=== PATIENT | male | born 1975 | race American Indian/Alaskan Native ===

== ENCOUNTER 2020-04-02 10:50 | Emergency (ER) | payer BC ==
[2020-04-02] MEDS ORDERED: diphenhydrAMINE 25 MG/10 ML ORAL LIQUID PO ONE (11:12)
[2020-04-02] MEDS ORDERED: SODIUM CHLORIDE 0.9% 500 ML 500 ML IV ONE (11:12)
[2020-04-02] MEDS ORDERED: METOCLOPRAMIDE 10 MG/2 ML INJ IV ONE (11:12)
--- NOTE | 2020-04-02 11:13 | Emergency Department Report ---
ED Headache HPI - General Chief Complaint: Headache Stated Complaint: HEADACHE X 12 DAYS Time Seen by Provider: 04/02/20 11:08 - History of Present Illness Initial Comments: 45-year-old male with a past medical history of hypertension and diabetes presents to the ER today complaint of a 12-day headache. Patient states that he has been having this left occipital headache which radiates into his left parietal scalp for the past 12 days. He describes it as sharp and sometimes throbbing and intermittent in nature. He states that sometimes it is worse when he is moving. He states that he did see his primary care doctor last Thursday and his primary care doctor did give him prescription for tramadol and amoxicillin for possible sinus infection and he did have an outpatient head CT. He states that he was supposed to follow-up today but he got concerned, did not want to wait and decided to come to the ER. He states that he is also been taking Zyrtec, BCs and Excedrin. He states that when he takes all of the medication he did get brief relief of his headache, but he states that the headache would come right back. He states that he does have a history of tension headaches, which he gets from "time to time" but he states this feels different from his tension headaches because it is lasting a little longer than usual. He denies any associated URI symptoms, nausea, vomiting, vision changes, speech changes, dizziness, neck pain, fever, chills, chest pain or shortness of breath. He states he has been compliant with his BP meds. Timing/Duration: other (12 days ) Quality: moderate Head Injury Location: occipital Allergies/Adverse Reactions: Allergies No Known Allergies Allergy (Verified 04/02/20 11:01) Home Medications: Ambulatory Orders Levocetirizine Dihydrochloride [Xyzal] 5 mg PO DAILY 06/10/15 Lisinopril/Hydrochlorothiazide [Zestoretic 20-12.5 mg] 1 tab PO QDAY 06/10/15 amLODIPine 10 mg PO DAILY 06/10/15 carvediloL [Coreg] 25 mg PO BID 06/10/15 methOCARBAMOL [Robaxin TAB] 500 mg PO Q8HR #30 tablet 04/02/20 ED Review of Systems ROS: Stated complaint: HEADACHE X 12 DAYS Other details as noted in HPI Comment: All other systems reviewed and negative Constitutional: denies: chills, fever Eyes: denies: eye pain, eye discharge, vision change ENT: denies: ear pain, throat pain Respiratory: denies: cough, orthopnea, shortness of breath, SOB with exertion, SOB at rest, wheezing Cardiovascular: denies: chest pain, palpitations Gastrointestinal: denies: abdominal pain, nausea, vomiting, diarrhea Genitourinary: denies: urgency, dysuria Musculoskeletal: denies: back pain, joint swelling, arthralgia Neurological: headache Psychiatric: denies: anxiety, depression Hematological/Lymphatic: denies: easy bleeding, easy bruising ED Past Medical Hx - Past Medical History Hx Hypertension: Yes Additional medical history: sleep apnea - Surgical History Additional Surgical History: left knee surgery - Social History Smoking Status: Never Smoker Substance Use Type: Alcohol - Medications Home Medications: Home Medications Medication Instructions Recorded Confirmed Last Taken Type Levocetirizine Dihydrochloride 5 mg PO DAILY 06/10/15 06/10/15 Unknown History [Xyzal] Lisinopril/Hydrochlorothiazide 1 tab PO QDAY 06/10/15 06/10/15 Unknown History [Zestoretic 20-12.5 mg] amLODIPine 10 mg PO DAILY 06/10/15 06/10/15 Unknown History carvediloL [Coreg] 25 mg PO BID 06/10/15 06/10/15 Unknown History methOCARBAMOL [Robaxin TAB] 500 mg PO Q8HR #30 tablet 04/02/20 Unknown Rx ED Physical Exam - General Limitations: No Limitations General appearance: alert, in no apparent distress - Head Head exam: Present: atraumatic, normocephalic, normal inspection - Eye Eye exam: Present: normal appearance, PERRL, EOMI Pupils: Present: normal accommodation - ENT ENT exam: Present: normal exam, normal orophraynx, mucous membranes moist, TM's normal bilaterally - Neck Neck exam: Present: normal inspection, full ROM. Absent: meningismus - Respiratory Respiratory exam: Present: normal lung sounds bilaterally. Absent: respiratory distress - Cardiovascular Cardiovascular Exam: Present: regular rate, normal rhythm, normal heart sounds - GI/Abdominal GI/Abdominal exam: Present: soft. Absent: distended, tenderness - Neurological Exam Neurological exam: Present: alert, oriented X3, CN II-XII intact, normal gait. Absent: motor sensory deficit - Psychiatric Psychiatric exam: Present: normal affect, normal mood - Skin Skin exam: Present: intact ED Course Vital Signs 04/02/20 04/02/20 11:04 13:02 Temperature 98.3 F Pulse Rate 82 70 Respiratory 18 18 Rate Blood Pressure 155/88 Blood Pressure 127/74 [Right] O2 Sat by Pulse 100 100 Oximetry ED Medical Decision Making - Lab Data Result diagrams: 04/02/20 12:05 04/02/20 12:05 - Radiology Data Radiology results: report reviewed - Medical Decision Making 45-year-old male with a past medical history of hypertension and diabetes presents to the ER today complaint of a 12-day headache. Patient states that he has been having this left occipital headache which radiates into his left parietal scalp for the past 12 days. He describes it as sharp and sometimes throbbing and intermittent in nature. He states that sometimes it is worse when he is moving. He states that he did see his primary care doctor last Thursday and his primary care doctor did give him prescription for tramadol and amoxicil nicci for possible sinus infection and he did have an outpatient head CT. He states that he was supposed to follow-up today but he got concerned, did not want to wait and decided to come to the ER. He states that he is also been taking Zyrtec, BCs and Excedrin. He states that when he takes all of the medication he did get brief relief of his headache, but he states that the headache would come right back. He states that he does have a history of tension headaches, which he gets from "time to time" but he states this feels different from his tension headaches because it is lasting a little longer than usual. He denies any associated URI symptoms, nausea, vomiting, vision changes, speech changes, dizziness, neck pain, fever, chills, chest pain or shortness of breath. He states he has been compliant with his BP meds 1312: CT head reviewed and shows nothing acute. Labs reviewed and unremarkable. Patient is currently resting comfortably,and he reports improvement of his headache after medications. He is not toxic appearing, he is not ill-appearing, he is not in any acute distress, and he is neurologically intact and with normal gait in the ER. His VS reviewed, BP improved, remaining vitals have been stable.The history, exam, diagnostic testing and the patient's current condition does not suggest meningitis, stroke, sepsis, subarachnoid hemorrhage, intracranial bleeding, encephalitis, temporal arteritis or other significant pathology to warrant further testing, continued ED treatment, admission, neurological consultation or other specialist evaluation at this point. Disc ussed results, suspected diagnosis and treatment plan with patient. the patient's condition is stable and appropriate for discharge. The patient will pursue further outpatient evaluation with the primary care physician. Critical care attestation.: If time is entered above; I have spent that time in minutes in the direct care of this critically ill patient, excluding procedure time. ED Disposition Clinical Impression: Headache Disposition: DC-01 TO HOME OR SELFCARE Is pt being admited?: No Does the pt Need Aspirin: No Condition: Stable Instructions: General Headache Without Cause Additional Instructions: Take the Robaxin as prescribed, continue the tramadol and you can take motrin from over the counter to help Headache Drink lots of water. Recommend that you follow-up closely with your primary care doctor this week. Return to the ER if your symptoms changes or worsens in any way. Prescriptions: methOCARBAMOL [Robaxin TAB] 500 mg PO Q8HR #30 tablet Referrals: JENIFFER BOOKER MD [Primary Care Provider] - 3-5 Days Forms: Work/School Release Form(ED) Time of Disposition: 13:05
--- NOTE | 2020-04-02 11:51 | Cat Scan Report ---
NONENHANCED CT SCAN OF THE HEAD: INDICATION / CLINICAL INFORMATION: 45 years Male; Headache. TECHNIQUE: Routine CT head without contrast. All CT scans at this location are performed using CT dos e reduction for ALARA by means of automated exposure control. COMPARISON: None. FINDINGS: BRAIN / INTRACRANIAL CONTENTS: No acute hemorrhage, mass effect, midline shift, hydrocephalus, or acu te, large territorial infarct. No chronic infarct or focal atrophy. Normal brain volume and ventricul ar/sulcal size for age. No significant white matter abnormality. CRANIOCERVICAL JUNCTION: No significant abnormality. ORBITS: No significant abnormality of visualized orbits. SINUSES / MASTOIDS: No significant abnormality of the visualized paranasal sinuses or mastoid air anuj ls. ADDITIONAL FINDINGS: None. IMPRESSION: No acute focal parenchymal lesion in the brain Signer Name: Angel Vargas MD Signed: 04/02/2020 11:47 AM Workstation Name: [id number]
[2020-04-02 12:34] LABS: Basophils % (Auto) 0.6 % (0.0-1.8); Eosinophils # (Auto) 0.2 K/mm3 (0.0-0.4); Eosinophils % (Auto) 3.4 % (0.0-4.3); Hematocrit 41.1 % (35.5-45.6); Hemoglobin 13.3 gm/dl (11.8-15.2); Lymphocytes # (Auto) 1.9 K/mm3 (1.2-5.4); Lymphocytes % (Auto) 39.6 % (13.4-35.0); Mean Corpuscular HGB Conc 32 % (32-34); Mean Corpuscular Volume 84 fl (84-94); Monocytes # (Auto) 0.4 K/mm3 (0.0-0.8); Monocytes % (Auto) 8.1 % (0.0-7.3); Platelet Count 143 K/mm3 (140-440); Red Blood Count 4.92 M/mm3 (3.65-5.03); Red Cell Distribution Width 17.2 % (13.2-15.2)
[2020-04-02 12:55] LABS: Alanine Aminotransferase 30 units/L (7-56); Albumin 4.1 g/dL (3.9-5); BUN/Creatinine Ratio 16; Blood Urea Nitrogen 16 mg/dL (9-20); Calcium 9.1 mg/dL (8.4-10.2); Hemolysis Index 4
[2020-04-02 13:03] VITALS: BP 127/74
== END 2020-04-02 13:16 | disposition home or self-care (01) ==
LOC: ED 10:50
DX: R51.9 Headache, unspecified (principal); I10 Essential (primary) hypertension; Z98.890 Other specified postprocedural states; Z79.899 Other long term (current) drug therapy
CPT/HCPCS: 36415; 70450; 80053; 85025; 96361; 96374; 99284; J2765; J7040; Q0163

== ENCOUNTER 2021-08-03 16:56 | Inpatient (IN) | payer BC ==
[2021-08-03] MEDS ORDERED: SODIUM CHLORIDE 0.9% 1000 ML 1,000 ML IV ONE (18:19)
[2021-08-03 18:45] LABS: Basophils % (Auto) 0.5 % (0.0-1.8); Eosinophils # (Auto) 0.1 K/mm3 (0.0-0.4); Eosinophils % (Auto) 1.4 % (0.0-4.3); Hematocrit 32.1 % (35.5-45.6); Hemoglobin 10.2 gm/dl (11.8-15.2); Lymphocytes # (Auto) 1.6 K/mm3 (1.2-5.4); Lymphocytes % (Auto) 17.8 % (13.4-35.0); Mean Corpuscular HGB Conc 32 % (32-34); Mean Corpuscular Volume 85 fl (84-94); Monocytes # (Auto) 0.5 K/mm3 (0.0-0.8); Monocytes % (Auto) 5.5 % (0.0-7.3); Platelet Count 146 K/mm3 (140-440); Red Blood Count 3.78 M/mm3 (3.65-5.03); Red Cell Distribution Width 15.2 % (13.2-15.2)
[2021-08-03 19:09] LABS: Alanine Aminotransferase 30 units/L (7-56); Albumin 3.7 g/dL (3.9-5); BUN/Creatinine Ratio 12; Blood Urea Nitrogen 14 mg/dL (9-20); Calcium 8.6 mg/dL (8.4-10.2); Hemolysis Index 3
--- NOTE | 2021-08-03 22:17 | Emergency Department Report ---
ED GI Bleed HPI - General Chief complaint: GI Bleed Stated complaint: RECTAL BLEEDING Time Seen by Provider: 08/03/21 22:01 Source: patient Mode of arrival: Ambulatory Limitations: No Limitations - History of Present Illness Initial comments: Patient is a 46-year-old male with history of diverticulosis lower GI bleeding presenting with complaint of GI bleed. States the initial event was . States he had a large bloody bowel movement that appeared to improve on Thursday however today around 2 AM he experienced another large bloody bowel movement accompanied by a presyncopal spell. He reports a similar incident back in 2016 for which he was admitted here and underwent upper endoscopy and biopsy. He also had a syncopal event during that time which was thought to have been vasovagal in nature. Severity scale (0 -10): 4 - Related Data Home Medications Medication Instructions Recorded Confirmed Last Taken Levocetirizine Dihydrochloride 5 mg PO DAILY 06/10/15 06/10/15 Unknown [Xyzal] Lisinopril/Hydrochlorothiazide 1 tab PO QDAY 06/10/15 06/10/15 Unknown [Zestoretic 20-12.5 mg] amLODIPine 10 mg PO DAILY 06/10/15 06/10/15 Unknown carvediloL [Coreg] 25 mg PO BID 06/10/15 06/10/15 Unknown Previous Rx's Medication Instructions Recorded Last Taken Type methOCARBAMOL [Robaxin TAB] 500 mg PO Q8HR #30 tablet 04/02/20 Unknown Rx Allergies Allergy/AdvReac Type Severity Reaction Status Date / Time No Known Allergies Allergy Verified 04/02/20 11:01 ED Review of Systems ROS: Stated complaint: RECTAL BLEEDING Other details as noted in HPI Comment: All other systems reviewed and negative Constitutional: denies: chills, fever Respiratory: denies: cough, shortness of breath, wheezing Cardiovascular: denies: chest pain, palpitations Gastrointestinal: hematochezia Genitourinary: denies: urgency, dysuria Musculoskeletal: denies: back pain, joint swelling, arthralgia Skin: denies: rash, lesions Neurological: denies: headache, weakness, paresthesias Psychiatric: denies: anxiety, depression ED Past Medical Hx - Past Medical History Previous Medical History?: Yes Hx Hypertension: Yes Additional medical history: sleep apnea, Diverticulosis - Surgical History Past Surgical History?: Yes Additional Surgical History: left knee surgery - Social History Smoking Status: Never Smoker Substance Use Type: Alcohol, Prescribed - Medications Home Medications: Home Medications Medication Instructions Recorded Confirmed Last Taken Type Levocetirizine Dihydrochloride 5 mg PO DAILY 06/10/15 06/10/15 Unknown History [Xyzal] Lisinopril/Hydrochlorothiazide 1 tab PO QDAY 06/10/15 06/10/15 Unknown History [Zestoretic 20-12.5 mg] amLODIPine 10 mg PO DAILY 06/10/15 06/10/15 Unknown History carvediloL [Coreg] 25 mg PO BID 06/10/15 06/10/15 Unknown History methOCARBAMOL [Robaxin TAB] 500 mg PO Q8HR #30 tablet 04/02/20 Unknown Rx ED Physical Exam - General Limitations: No Limitations General appearance: alert, in no apparent distress - Head Head exam: Present: atraumatic, normocephalic - Neck Neck exam: Present: normal inspection - Respiratory Respiratory exam: Present: normal lung sounds bilaterally. Absent: respiratory distress - Cardiovascular Cardiovascular Exam: Present: regular rate, normal rhythm - GI/Abdominal GI/Abdominal exam: Present: soft. Absent: distended, tenderness - Rectal Rectal exam: Present: deferred - Neurological Exam Neurological exam: Present: alert, oriented X3 - Psychiatric Psychiatric exam: Present: normal affect, normal mood - Skin Skin exam: Present: warm, dry, intact, normal color ED Course Vital Signs 08/03/21 18:02 Temperature 97.6 F Pulse Rate 75 Respiratory 20 Rate Blood Pressure 105/67 [Right] O2 Sat by Pulse 99 Oximetry ED Medical Decision Making - Lab Data Result diagrams: 08/03/21 18:23 08/03/21 18:23 - Medical Decision Making Patient with history of diverticulosis and diverticular bleeding presenting with complaint of hematochezia beginning . H&H today is 10 and 32. Vital signs are stable. Blood pressure borderline low. Will give 1 L normal saline bolus and admit to hospitalist for observation and serial H&H's. Critical care attestation.: If time is entered above; I have spent that time in minutes in the direct care of this critically ill patient, excluding procedure time. ED Disposition Clinical Impression: Hematochezia Disposition: ADMITTED INPATIENT Is pt being admited?: Yes Condition: Stable Forms: Accompanied Note
[2021-08-03] MEDS ORDERED: MORPHINE 2 MG/1 ML INJ IV PRN (22:56)
[2021-08-03] MEDS ORDERED: ALBUTEROL 2.5 MG/3 ML NEBU IH PRN (22:56)
[2021-08-03] MEDS ORDERED: MORPHINE 4 MG/1 ML INJ IV PRN (22:56)
[2021-08-03] MEDS ORDERED: ONDANSETRON 4 MG/2 ML INJ IV PRN (22:56)
[2021-08-03] MEDS ORDERED: ACETAMINOPHEN 325 MG TAB PO PRN (22:56)
--- NOTE | 2021-08-03 23:03 | History and Physical Report ---
History of Present Illness Date of examination: 08/03/21 Date of admission: 08/03/21 Chief complaint: Rectal bleeding History of present illness: 46-year-old male with history of diverticulosis and lower GI bleeding presenting with complaint of GI bleed since . Patient had a large bloody bowel movement that appeared to improve on Thursday however today around 2 AM he experienced another large bloody bowel movement accompanied by a presyncopal spell. He reports a similar incident back in 2016 for which he was admitted here and underwent upper endoscopy and biopsy. He also had a syncopal event during that time which was thought to have been vasovagal in nature. In the emergency room patient hemoglobin is 10.2 and hematocrit 32.1 so going to admit the patient will consult GI for evaluation we also put the patient on Protonix . Past History Past Medical History: hypertension, other (Diverticulosis and lower GI bleeding, sleep apnea) Past Surgical History: Other (Left knee surgery) Social history: alcohol abuse Family history: hypertension Medications and Allergies Allergies Allergy/AdvReac Type Severity Reaction Status Date / Time No Known Allergies Allergy Verified 04/02/20 11:01 Home Medications Medication Instructions Recorded Confirmed Last Taken Type Levocetirizine Dihydrochloride 5 mg PO DAILY 06/10/15 06/10/15 Unknown History [Xyzal] Lisinopril/Hydrochlorothiazide 1 tab PO QDAY 06/10/15 06/10/15 Unknown History [Zestoretic 20-12.5 mg] amLODIPine 10 mg PO DAILY 06/10/15 06/10/15 Unknown History carvediloL [Coreg] 25 mg PO BID 06/10/15 06/10/15 Unknown History methOCARBAMOL [Robaxin TAB] 500 mg PO Q8HR #30 tablet 04/02/20 Unknown Rx Review of Systems All systems: negative Constitutional: other (Hematochezia, will rectal bleed) Exam - Constitutional Vitals: Temp Pulse Resp BP Pulse Ox 97.6 F 75 20 105/67 99 08/03/21 18:02 08/03/21 18:02 08/03/21 18:02 08/03/21 18:02 08/03/21 18:02 General appearance: Present: no acute distress, well-nourished - EENT Eyes: Present: PERRL ENT: hearing intact, clear oral mucosa - Neck Neck: Present: supple, normal ROM - Respiratory Respiratory effort: normal Respiratory: bilateral: CTA - Cardiovascular Heart Sounds: Present: S1 & S2. Absent: rub, click - Extremities Extremities: pulses symmetrical, No edema Peripheral Pulses: within normal limits - Abdominal General gastrointestinal: Present: soft, non-tender, non-distended, normal bowel sounds Male genitourinary: Present: normal - Integumentary Integumentary: Present: clear, warm, dry - Musculoskeletal Musculoskeletal: gait normal, strength equal bilaterally - Psychiatric Psychiatric: appropriate mood/affect, intact judgment & insight - Neurologic Neurologic: CNII-XII intact, moves all extremities Results - Labs CBC & Chem 7: 08/03/21 18:08/03/21 18: Labs: Laboratory Last Values WBC 9.0 K/mm3 (4.5-11.0) 08/03/21 18: RBC 3.78 M/mm3 (3.65-5.03) 08/03/21 18: Hgb 10.2 gm/dl (11.8-15.2) L 08/03/21: Hct 32.1 % (35.5-45.6) L 08/03/21 18: MCV 85 fl (84-94) 08/03/21 18: MCH 27 pg (28-32) L 08/03/21 18: MCHC 32 % (32-34) 08/03/21 18: RDW 15.2 % (13.2-15.2) 08/03/21 18: Plt Count 146 K/mm3 (140-440) 08/03/21 18: Lymph % (Auto) 17.8 % (13.4-35.0) 08/03/21 18: [place] % (Auto) 5.5 % (0.0-7.3) 08/03/21 18: Eos % (Auto) 1.4 % (0.0-4.3) 08/03/21 18: Baso % (Auto) 0.5 % (0.0-1.8) 08/03/21 18: Lymph # (Auto) 1.6 K/mm3 (1.2-5.4) 08/03/21 18: [place] # (Auto) 0.5 K/mm3 (0.0-0.8) 08/03/21 18:23 Eos # (Auto) 0.1 K/mm3 (0.0-0.4) 08/03/21 18:23 Baso # (Auto) 0.0 K/mm3 (0.0-0.1) 08/03/21 18: Seg Neutrophils % 74.8 % (40.0-70.0) H 08/03/21 18: Seg Neutrophils # 6.7 K/mm3 (1.8-7.7) 08/03/21 18: Sodium 138 mmol/L (137-145) 08/03/21 18: Potassium 3.6 mmol/L (3.6-5.0) 08/03/21 18: Chloride 103.8 mmol/L (98-107) 08/03/21 18: Carbon Dioxide 27 mmol/L (22-30) 08/03/21 18: Anion Gap 11 mmol/L 08/03/21 18: BUN 14 mg/dL (9-20) 08/03/21 18: Creatinine 1.2 mg/dL (0.8-1.3) 08/03/21 18: Estimated GFR > 60 ml/min 08/03/21 18: BUN/Creatinine Ratio 12 % 08/03/21 18: Glucose 153 mg/dL (75-100) H 08/03/21 18: Calcium 8.6 mg/dL (8.4-10.2) 08/03/21: Total Bilirubin 0.30 mg/dL (0.1-1.2) 08/03/21 18: AST 17 units/L (5-40) 08/03/21 18: ALT 30 units/L (7-56) 08/03/21 18: Alkaline Phosphatase 66 units/L (35-129) 08/03/21: Total Protein 5.9 g/dL (6.3-8.2) L 08/03/21: Albumin 3.7 g/dL (3.9-5) L 08/03/21: Albumin/Globulin Ratio 1.7 % 08/03/21 18: Blood Type O POSITIVE 08/03/21: Antibody Screen Negative 06/18/22 18:23 Assessment and Plan VTE prophylaxis?: Mechanical Plan of care discussed with patient/family: Yes - Patient Problems (1) Hematochezia Status: Acute Plan to address problem: Admit the patient to the medical telemetry. NPO. D5 normal saline at the rate of 100 cc/h. Protonix 40 mg IV every 12 hours. We will do the serial H&H. Will consult GI for evaluation (2) Alcohol abuse Status: Acute Plan to address problem: We counseled the patient to quit alcohol. We continue the home medication (3) Lower GI bleed Status: Acute Plan to address problem: NPO. D5 normal saline at the rate of 100 cc/h. Protonix 40 mg IV every 12 hours. We will do the serial H&H. Will consult GI for evaluation (4) Syncope Status: Acute Plan to address problem: D5 normal saline at the rate of 100 cc/h. We will monitor the patient closely. Recheck CBC BMP in the morning (5) DVT prophylaxis Status: Acute Plan to address problem: SCD for DVT prophylaxis. Protonix 40 mg IV every 12 hours for GI prophylaxis. Patient is a full code
[2021-08-04] MEDS: IPRATROPIUM/ALBUTEROL SULFATE 3 ML AMPUL.NEB IH SCH ×3 (03:00→14:36)
[2021-08-04] MEDS: D5W/0.9% NACL 1,000 ML IV SCH ×2 (03:48→13:24)
[2021-08-04 06:20] LABS: Basophils % (Auto) 0.3 % (0.0-1.8); Eosinophils # (Auto) 0.1 K/mm3 (0.0-0.4); Eosinophils % (Auto) 1.1 % (0.0-4.3); Hematocrit 26.3 % (35.5-45.6); Hemoglobin 8.6 gm/dl (11.8-15.2); Lymphocytes # (Auto) 2.5 K/mm3 (1.2-5.4); Lymphocytes % (Auto) 28.8 % (13.4-35.0); Mean Corpuscular HGB Conc 33 % (32-34); Mean Corpuscular Volume 84 fl (84-94); Monocytes # (Auto) 0.5 K/mm3 (0.0-0.8); Monocytes % (Auto) 5.9 % (0.0-7.3); Platelet Count 134 K/mm3 (140-440); Red Blood Count 3.14 M/mm3 (3.65-5.03); Red Cell Distribution Width 15.1 % (13.2-15.2)
[2021-08-04 07:08] LABS: BUN/Creatinine Ratio 13; Blood Urea Nitrogen 12 mg/dL (9-20); Calcium 8.3 mg/dL (8.4-10.2); Hemolysis Index 7
--- NOTE | 2021-08-04 09:00 | Progress Note ---
Assessment and Plan Assessment and plan: VTE prophylaxis?: Mechanical Plan of care discussed with patient/family: Yes Assessment and plan; --Hematochezia NPO STATUS , Continue IV fluids Patient is on IV Protonix GI consulted -- Alcohol abuse We counseled the patient to quit alcohol. Thiamine folic acid --Mild hyponatremia; IV fluids, monitor electrolytes -- Lower GI bleed No new episodes since morning, closely monitor for any bleeding Monitor H&H and transfuse if needed Continue IV fluids and IV Protonix Follow GI evaluation and recommendations -- Syncope/autonomic dysfunction Probably vasovagal, due to GI bleeding Fall precautions, PT OT if needed prior to discharge --Hypertension; moderate control Continue current antihypertensives As needed medications --DVT prophylaxis SCD for DVT prophylaxis. No pharmacologic anticoagulation due to GI bleeding --full CODE STATUS We will closely monitor the patient and adjust management as needed Advance care planning; patient's condition discussed Diagnosis discussed, tests and reports discussed, treatment plan discussed Need for consultation with GI specialist discussed, discharge planning discussed when stable Answered all patient and the significant other questions and addressed all their concerns They verbalized understanding, additional 32 minutes spent History Interval history: I have seen and examined the patient at the bedside Patient's chart and medications reviewed Patient was admitted with hematochezia/GI bleeding No new episodes of bleeding since morning Complains of vague abdominal discomfort Vital signs noted Hospitalist Physical - Constitutional Vitals: Temp Pulse Resp BP Pulse Ox 98.3 F 88 16 128/83 98 08/04/21 04:37 08/04/21 08:37 08/04/21 08:37 08/04/21 04:37 08/04/21 08:39 General appearance: Present: no acute distress, well-nourished, obese (Morbidly obese ) - EENT Eyes: Present: PERRL, EOM intact - Neck Neck: Present: supple, normal ROM - Respiratory Respiratory effort: normal Respiratory: bilateral: diminished, negative: rales, rhonchi, wheezing - Cardiovascular Rhythm: regular Heart Sounds: Present: S1 & S2 - Extremities Extremities: no ischemia, No edema - Abdominal General gastrointestinal: soft, non-tender, non-distended, normal bowel sounds - Integumentary Integumentary: Present: clear, warm - Psychiatric Psychiatric: appropriate mood/affect, cooperative - Neurologic Neurologic: CNII-XII intact, moves all extremities Results - Labs CBC & Chem 7: 08/04/21 15:16 08/04/21 05:17 Labs: Laboratory Last Values WBC 8.6 K/mm3 (4.5-11.0) 08/04/21 05:17 RBC 3.14 M/mm3 (3.65-5.03) L 08/04/21 05:17 Hgb 8.6 gm/dl (11.8-15.2) L 08/04/21 05:17 Hct 26.3 % (35.5-45.6) L 08/04/21 05:17 MCV 84 fl (84-94) 08/04/21 05:17 MCH 28 pg (28-32) 08/04/21 05:17 MCHC 33 % (32-34) 08/04/21 05:17 RDW 15.1 % (13.2-15.2) 08/04/21 05:17 Plt Count 134 K/mm3 (140-440) L 08/04/21 05:17 Lymph % (Auto) 28.8 % (13.4-35.0) 08/04/21 05:17 Hudson % (Auto) 5.9 % (0.0-7.3) 08/04/21 05:17 Eos % (Auto) 1.1 % (0.0-4.3) 08/04/21 05:17 Baso % (Auto) 0.3 % (0.0-1.8) 08/04/21 05:17 Lymph # (Auto) 2.5 K/mm3 (1.2-5.4) 08/04/21 05:17 Hudson # (Auto) 0.5 K/mm3 (0.0-0.8) 08/04/21 05:17 Eos # (Auto) 0.1 K/mm3 (0.0-0.4) 08/04/21 05:17 Baso # (Auto) 0.0 K/mm3 (0.0-0.1) 08/04/21 05:17 Seg Neutrophils % 63.9 % (40.0-70.0) 08/04/21 05:17 Seg Neutrophils # 5.5 K/mm3 (1.8-7.7) 08/04/21 05:17 Sodium 142 mmol/L (137-145) 08/04/21 05:17 Potassium 4.0 mmol/L (3.6-5.0) 08/04/21 05:17 Chloride 107.1 mmol/L (98-107) H 08/04/21 05:17 Carbon Dioxide 24 mmol/L (22-30) 08/04/21 05:17 Anion Gap 15 mmol/L 08/04/21 05:17 BUN 12 mg/dL (9-20) 08/04/21 05:17 Creatinine 0.9 mg/dL (0.8-1.3) 08/04/21 05:17 Estimated GFR > 60 ml/min 08/04/21 05:17 BUN/Creatinine Ratio 13 % 08/04/21 05:17 Glucose 117 mg/dL (75-100) H 08/04/21 05:17 Calcium 8.3 mg/dL (8.4-10.2) L 08/04/21 05:17 Total Bilirubin 0.30 mg/dL (0.1-1.2) 08/03/21 18:23 AST 17 units/L (5-40) 08/03/21 18:23 ALT 30 units/L (7-56) 08/03/21 18:23 Alkaline Phosphatase 66 units/L (35-129) 08/03/21 18:23 Total Protein 5.9 g/dL (6.3-8.2) L 08/03/21 18:23 Albumin 3.7 g/dL (3.9-5) L 08/03/21 18:23 Albumin/Globulin Ratio 1.7 % 08/03/21 18:23 Blood Type O POSITIVE 08/03/21 18:23 Antibody Screen Negative 08/03/21 18:23 Active Medications - Current Medications Current Medications: Generic Name Dose Route Start Last Admin Trade Name Freq PRN Reason Stop Dose Admin Acetaminophen 650 mg 08/03/21 22:56 Acetaminophen 325 Mg Tab PO Q4H PRN Pain MILD(1-3)/Fever >100.5/RIDDLE Albuterol 2.5 mg 08/03/21 22:56 Albuterol 2.5 Mg/3 Ml Nebu IH Q3HRT PRN Shortness Of Breath Albuterol/Ipratropium 1 ampul 08/04/21 02:00 08/04/21 08:36 Ipratropium/Albuterol Sulfate 3 Ml Ampul.Neb IH 1 ampul Q6HRT ALEIDA Administration Amlodipine Besylate 10 mg 08/04/21 10:00 Amlodipine 10 Mg Tab PO DAILY [facility] Carvedilol 25 mg 08/04/21 10:00 Carvedilol 25 Mg Tab PO BID [facility] Cetirizine HCl 10 mg 08/04/21 10:00 Cetirizine 10 Mg Tab PO DAILY [facility] Hydrochlorothiazide 12.5 mg 08/04/21 10:00 Hydrochlorothiazide 12.5 Mg Cap PO QDAY [facility] Dextrose/Sodium Chloride 1,000 mls @ 100 mls/hr 08/03/21 23:00 08/04/21 03:48 D5ns IV 100 mls/hr DIRECT ALEIDA Administration Lisinopril 20 mg 08/04/21 10:00 Lisinopril 20 Mg Tab PO QDAY [facility] Morphine Sulfate 2 mg 08/03/21 22:56 Morphine 2 Mg/1 Ml Inj IV Q4H PRN Pain, Moderate (4-6) Morphine Sulfate 2 mg 08/03/21 22:56 Morphine 4 Mg/1 Ml Inj IV Q4H PRN Pain , Severe (7-10) Ondansetron HCl 4 mg 08/03/21 22:56 Ondansetron 4 Mg/2 Ml Inj IV Q8H PRN Nausea And Vomiting Pantoprazole Sodium 40 mg 08/04/21 10:00 Pantoprazole 40 Mg Inj IV BID [facility] Sodium Chloride 10 ml 08/04/21 10:00 Sodium Chloride 0.9% 10 Ml Flush Syringe IV BID [facility] Sodium Chloride 10 ml 08/03/21 22:56 Sodium Chloride 0.9% 10 Ml Flush Syringe IV PRN PRN LINE FLUSH
[2021-08-04] MEDS: hydroCHLOROthiazide 12.5 MG CAP PO SCH (09:59)
[2021-08-04] MEDS: LISINOPRIL 20 MG TAB PO SCH (09:59)
[2021-08-04] MEDS: PANTOPRAZOLE 40 MG INJ IV SCH ×2 (09:59→21:38)
[2021-08-04] MEDS: amLODIPine 10 MG TAB PO SCH (10:00)
[2021-08-04] MEDS: CETIRIZINE 10 MG TAB PO SCH (10:00)
[2021-08-04] MEDS ORDERED: LEVOCETIRIZINE DIHYDROCHLORIDE 5 MG PO SCH (10:00)
[2021-08-04] MEDS: carvediloL 25 MG TAB PO SCH ×2 (10:00→21:38)
[2021-08-04] MEDS ORDERED: NON-FORMULARY EACH (Lisinopril/Hydrochlorothiazide [Zestoretic 20-12.5 Mg] 1 EACH Tablet) PO SCH (10:00)
[2021-08-04 15:31] LABS: Hematocrit 25.6 % (35.5-45.6); Hemoglobin 8.3 gm/dl (11.8-15.2)
--- NOTE | 2021-08-04 17:44 | Progress Note ---
Assessment and Plan Assessment and plan: VTE prophylaxis?: Mechanical Plan of care discussed with patient/family: Yes Assessment and plan; --Hematochezia/GI bleeding NPO STATUS , Continue IV fluids Patient is on IV Protonix GI evaluation noted and appreciated Patient is scheduled for endoscopy today Monitor H&H and transfuse if needed Continue IV fluids and IV Protonix Follow GI evaluation and recommendations -- Syncope/autonomic dysfunction Probably vasovagal, due to GI bleeding Fall precautions, PT OT if needed prior to discharge --Hypertension; moderate control Continue current antihypertensives As needed medications --DVT prophylaxis SCD for DVT prophylaxis. No pharmacologic anticoagulation due to GI bleeding --full CODE STATUS We will closely monitor the patient and adjust management as needed Advance care planning; patient's condition discussed Diagnosis discussed, tests and reports discussed, treatment plan discussed Need for consultation with GI specialist discussed, discharge planning discussed when stable Answered all patient and the significant other questions and addressed all their concerns They verbalized understanding, additional 32 minutes spent 46-year-old male patient was admitted with rectal bleeding, evaluated by GI, mild drop in H&H Scheduled for endoscopy today. 08/05/2021; scheduled for endoscopy today N.p.o. status, monitor H&H Follow endoscopy results, follow clinically Discharge when medically stable and cleared by GI History Interval history: Patient scheduled for endoscopy today Have seen and examined the patient at the bedside this morning Patient's chart and medications reviewed Patient with rectal bleeding, evaluated by GI, scheduled for endoscopy No new complaints Vital signs reviewed Hospitalist Physical - Constitutional Vitals: Temp Pulse Resp BP Pulse Ox 97.8 F 80 16 143/93 98 08/04/21 09:52 08/04/21 14:36 08/04/21 14:36 08/04/21 09:52 08/04/21 15:23 General appearance: Present: no acute distress, well-nourished, obese (Morbidly obese ) - EENT Eyes: Present: PERRL, EOM intact - Neck Neck: Present: supple, normal ROM - Respiratory Respiratory effort: normal Respiratory: bilateral: diminished, negative: rales, rhonchi, wheezing - Cardiovascular Rhythm: regular Heart Sounds: Present: S1 & S2 - Extremities Extremities: no ischemia, No edema - Abdominal General gastrointestinal: soft, non-tender, non-distended, normal bowel sounds - Integumentary Integumentary: Present: clear, warm - Psychiatric Psychiatric: appropriate mood/affect, cooperative - Neurologic Neurologic: moves all extremities Results - Labs CBC & Chem 7: 08/05/21 11:55 08/04/21 05:17 Labs: Laboratory Last Values WBC 8.6 K/mm3 (4.5-11.0) 08/04/21 05:17 RBC 3.14 M/mm3 (3.65-5.03) L 08/04/21 05:17 Hgb 8.3 gm/dl (11.8-15.2) L 08/04/21 15:16 Hct 25.6 % (35.5-45.6) L 08/04/21 15:16 MCV 84 fl (84-94) 08/04/21 05:17 MCH 28 pg (28-32) 08/04/21 05:17 MCHC 33 % (32-34) 08/04/21 05:17 RDW 15.1 % (13.2-15.2) 08/04/21 05:17 Plt Count 134 K/mm3 (140-440) L 08/04/21 05:17 Lymph % (Auto) 28.8 % (13.4-35.0) 08/04/21 05:17 Tyler % (Auto) 5.9 % (0.0-7.3) 08/04/21 05:17 Eos % (Auto) 1.1 % (0.0-4.3) 08/04/21 05:17 Baso % (Auto) 0.3 % (0.0-1.8) 08/04/21 05:17 Lymph # (Auto) 2.5 K/mm3 (1.2-5.4) 08/04/21 05:17 Tyler # (Auto) 0.5 K/mm3 (0.0-0.8) 08/04/21 05:17 Eos # (Auto) 0.1 K/mm3 (0.0-0.4) 08/04/21 05:17 Baso # (Auto) 0.0 K/mm3 (0.0-0.1) 08/04/21 05:17 Seg Neutrophils % 63.9 % (40.0-70.0) 08/04/21 05:17 Seg Neutrophils # 5.5 K/mm3 (1.8-7.7) 08/04/21 05:17 Sodium 142 mmol/L (137-145) 08/04/21 05:17 Potassium 4.0 mmol/L (3.6-5.0) 08/04/21 05:17 Chloride 107.1 mmol/L (98-107) H 08/04/21 05:17 Carbon Dioxide 24 mmol/L (22-30) 08/04/21 05:17 Anion Gap 15 mmol/L 08/04/21 05:17 BUN 12 mg/dL (9-20) 08/04/21 05:17 Creatinine 0.9 mg/dL (0.8-1.3) 08/04/21 05:17 Estimated GFR > 60 ml/min 08/04/21 05:17 BUN/Creatinine Ratio 13 % 08/04/21 05:17 Glucose 117 mg/dL (75-100) H 08/04/21 05:17 Calcium 8.3 mg/dL (8.4-10.2) L 08/04/21 05:17 Total Bilirubin 0.30 mg/dL (0.1-1.2) 08/03/21 18:23 AST 17 units/L (5-40) 08/03/21 18:23 ALT 30 units/L (7-56) 08/03/21 18:23 Alkaline Phosphatase 66 units/L (35-129) 08/03/21 18:23 Total Protein 5.9 g/dL (6.3-8.2) L 08/03/21 18:23 Albumin 3.7 g/dL (3.9-5) L 08/03/21 18:23 Albumin/Globulin Ratio 1.7 % 08/03/21 18:23 Blood Type O POSITIVE 08/03/21 18:23 Antibody Screen Negative 08/03/21 18:23 Barron/IV: Voiding Method Toilet Active Medications - Current Medications Current Medications: Generic Name Dose Route Start Last Admin Trade Name Freq PRN Reason Stop Dose Admin Acetaminophen 650 mg 08/03/21 22:56 Acetaminophen 325 Mg Tab PO Q4H PRN Pain MILD(1-3)/Fever >100.5/RIDDLE Albuterol 2.5 mg 08/03/21 22:56 Albuterol 2.5 Mg/3 Ml Nebu IH Q3HRT PRN Shortness Of Breath Amlodipine Besylate 10 mg 08/04/21 10:00 08/04/21 10:00 Amlodipine 10 Mg Tab PO 10 mg DAILY ALEIDA Administration Carvedilol 25 mg 08/04/21 10:00 08/04/21 10:00 Carvedilol 25 Mg Tab PO 25 mg BID ALEIDA Administration Cetirizine HCl 10 mg 08/04/21 10:00 08/04/21 10:00 Cetirizine 10 Mg Tab PO 10 mg DAILY ALEIDA Administration Hydrochlorothiazide 12.5 mg 08/04/21 10:00 08/04/21 09:59 Hydrochlorothiazide 12.5 Mg Cap PO 12.5 mg QDAY ALEIDA Administration Dextrose/Sodium Chloride 1,000 mls @ 100 mls/hr 08/03/21 23:00 08/04/21 13:24 D5ns IV 100 mls/hr DIRECT ALEIDA Administration Lisinopril 20 mg 08/04/21 10:00 08/04/21 09:59 Lisinopril 20 Mg Tab PO 20 mg QDAY ALEIDA Administration Morphine Sulfate 2 mg 08/03/21 22:56 Morphine 2 Mg/1 Ml Inj IV Q4H PRN Pain, Moderate (4-6) Morphine Sulfate 2 mg 08/03/21 22:56 Morphine 4 Mg/1 Ml Inj IV Q4H PRN Pain , Severe (7-10) Ondansetron HCl 4 mg 08/03/21 22:56 Ondansetron 4 Mg/2 Ml Inj IV Q8H PRN Nausea And Vomiting Pantoprazole Sodium 40 mg 08/04/21 10:00 08/04/21 09:59 Pantoprazole 40 Mg Inj IV 40 mg BID ALEIDA Administration Sodium Chloride 10 ml 08/04/21 10:00 08/04/21 10:00 Sodium Chloride 0.9% 10 Ml Flush Syringe IV 10 ml BID ALEIDA Administration Sodium Chloride 10 ml 08/03/21 22:56 Sodium Chloride 0.9% 10 Ml Flush Syringe IV PRN PRN LINE FLUSH
[2021-08-04] MEDS ORDERED: POLYETHYLENE GLYCOL/ELECT SOLN 4000 ML PO ONE (19:59)
[2021-08-04 22:39] LABS: Hematocrit 27.4 % (35.5-45.6); Hemoglobin 8.8 gm/dl (11.8-15.2)
--- NOTE | 2021-08-05 03:56 | Consultation ---
DATE OF CONSULTATION: 08/04/2021 REFERRING PHYSICIAN: Dr. Amber Washington INDICATION: GI bleed. HISTORY OF PRESENT ILLNESS: The patient is a 46-year-old male with a history of diverticulosis and lower GI bleed in the past, presents with GI bleeding. The patient reports a vague history of having some GI bleeding back in 2016 and underwent both an upper and lower scope. The patient presented after bouts of rectal bleeding with large bloody bright red and maroon stools. The patient had a presyncopal event. The patient does report some NSAIDs use. He does also report some reflux and some upper abdominal discomfort. The patient subsequently came to the Emergency Room, was admitted and GI consulted to aid in management. No other specific complaints. PAST MEDICAL HISTORY: 1. Hypertension. 2. Diverticular disease in the past. 3. Sleep apnea. MEDICATIONS: Reviewed and updated in chart. ALLERGIES: No known drug allergies. SOCIAL HISTORY: Denies alcohol, tobacco or drug abuse. FAMILY HISTORY: Negative for colon cancer, IBD, or liver disease. REVIEW OF SYSTEMS: GENERAL: Reports some weakness. HEENT: Denies visual complaints or tinnitus. PULMONARY: No shortness of breath, chest pain. GASTROINTESTINAL: Reports rectal bleeding. All points of 13-point review of system otherwise negative. PHYSICAL EXAMINATION: VITAL SIGNS: Temperature of 98.8, pulse 77, respirations 18, blood pressure 138/78. GENERAL: Fairly nourished black male, somewhat obese, in no acute distress. HEENT: Pupils equal, round and reactive. PULMONARY: Clear to auscultation bilaterally. CARDIOVASCULAR: Regular rate and rhythm. Normal S1, S2. ABDOMEN: Positive bowel sounds, soft. HEMATOLOGIC: No obvious rashes. LABORATORY DATA: Pertinent for white count of 8.6, hemoglobin and hematocrit of 8.6 and 26.3, platelet count of 134. Chem-7 within normal limits. ASSESSMENT: A 46-year-old black male with a reported history of diverticular bleed 6 years ago, now presents with bright red and maroon stool as well as some dark stools over the last week in the setting of NSAID use and history of gastroesophageal reflux disease and mild epigastric pain. Most likely lower gastrointestinal bleed but possible upper gastrointestinal source. PLAN: 1. Follow hematocrit and transfuse as needed. 2. Avoid NSAIDs and aspirin. 3. PPI daily. 4. Plan EGD and colonoscopy in a.m. TID: [id number] RECEIPT: [id number] MARTHA/SYLVIE
[2021-08-05] MEDS: LISINOPRIL 20 MG TAB PO SCH (11:40)
[2021-08-05] MEDS: carvediloL 25 MG TAB PO SCH ×2 (11:41→21:21)
[2021-08-05] MEDS: amLODIPine 10 MG TAB PO SCH (11:41)
[2021-08-05] MEDS: CETIRIZINE 10 MG TAB PO SCH (11:41)
[2021-08-05] MEDS: hydroCHLOROthiazide 12.5 MG CAP PO SCH (11:43)
[2021-08-05] MEDS: PANTOPRAZOLE 40 MG INJ IV SCH (11:44)
[2021-08-05] MEDS ORDERED: SODIUM CHLORIDE 0.9% 1000 ML 1,000 ML IV SCH (12:00)
[2021-08-05 12:33] LABS: Hematocrit 27.8 % (35.5-45.6); Hemoglobin 8.9 gm/dl (11.8-15.2)
--- NOTE | 2021-08-05 12:41 | Anesthesia Consultation ---
Anesthesia Consult and Med Hx Date of service: 08/05/21 - Airway Anesthetic Teeth Evaluation: Good ROM Head & Neck: Adequate Mental/Hyoid Distance: Adequate Mallampati Class: Class II Intubation Access Assessment: Good - Pulmonary Exam CTA: Yes - Cardiac Exam Cardiac Exam: RRR - Pre-Operative Health Status ASA Pre-Surgery Classification: ASA2, Emergency Proposed Anesthetic Plan: MAC - Pulmonary Hx Asthma: No COPD: No Hx Pneumonia: No Hx Sleep Apnea: Yes (CPAP at home) - Cardiovascular System Hx Hypertension: Yes - Central Nervous System Hx Psychiatric Problems: No - Endocrine Hx End Stage Renal Disease: No Hx Non-Insulin Dependent Diabetes: Yes - Other Systems Hx Alcohol Use: No Hx Obesity: Yes
[2021-08-05] MEDS ORDERED: propofoL 200 MG/20 ML VIAL IV ONE (13:20)
--- NOTE | 2021-08-05 13:41 | Post Operative Note ---
Pre-op diagnosis: GI bleed Post-op diagnosis: same Findings: EGD: hiatal hernia - mild gastritis with few superficial erosions (bx's) - negative other Colon: brown stool throughout - mild diverticulosis sigmoid/ascending colon - medium internal hemorrhoids - negative other Procedure: egd/colonoscopy Anesthesia: MAC Surgeon: CARLITOS SNYDER Estimated blood loss: none Pathology: list Specimen disposition: to lab Condition: stable Disposition: floor
--- NOTE | 2021-08-05 14:16 | Operative Report ---
DATE OF SURGERY: 08/05/2021 PROCEDURE: EGD with cold biopsy. INDICATIONS: 1. Anemia. 2. Gastrointestinal bleed. MEDICATIONS: Propofol per EPIC KALEIDOSCOPE ANALYST. COMPLICATIONS: None. DESCRIPTION OF PROCEDURE: The patient was brought to the procedure suite. The patient had the procedure discussed with him at length. All risks, complications, and benefits discussed after which the patient signed for the procedure to be performed. The patient was placed in left lateral decubitus position. Mouth block placed in patient's oral cavity. After adequate sedation with medications as above, endoscope placed in the mouth and brought to the level of the second portion of duodenum. Retroflexion view performed. The patient's vital signs remained stable throughout the procedure. FINDINGS: There is a small hiatal hernia at GE junction 40 cm from the gums. Esophagus otherwise appeared grossly normal. There was mild antral gastritis with a few small erosions noted. Biopsies were taken and sent to pathology. Remaining stomach otherwise appeared to be normal. Duodenum appeared to be normal. Retroflexion view performed in the stomach showed no other pathology other than noted above. The patient tolerated the procedure well. No complications noted during the procedure. IMPRESSION: 1. Hiatal hernia. 2. Mild gastritis with erosions with biopsies performed. 3. Otherwise, normal esophagogastroduodenoscopy. RECOMMENDATIONS: 1. Follow up biopsy results. 2. If H. pylori positive, we will treat. 3. PPI daily. 4. Colonoscopy to follow. Further recommendation based on colonoscopy results. TID: [id number] RECEIPT: [id number] CAB/SHE
--- NOTE | 2021-08-05 14:38 | Operative Report ---
DATE OF SURGERY: 08/05/2021 PROCEDURE: Colonoscopy. INDICATIONS: 1. Anemia. 2. Gastrointestinal bleed. MEDICATIONS: Propofol per DOG OR ANIMAL SITTER. COMPLICATIONS: None. DESCRIPTION OF PROCEDURE: The patient was brought to the procedure suite. The patient had the procedure discussed with her at length. All risks, complications, and benefits discussed after which the patient signed for the procedure to be performed. The patient was placed in flat decubitus position. Rectal exam performed prior to insertion of scope. After adequate sedation with medications as above, the colonoscope placed in the rectum and brought to the level of the cecum. Ileocecal valve, appendiceal orifice, cecal strap were adequately visualized. Terminal ileum was also visualized. Colonoscope was then removed and mucosa of colon visualized. Prep quality was fair to poor. The patient's vital signs remained stable throughout the procedure. FINDINGS: This was fair to poor prep, but procedure was completed. There were no obvious mass lesions or polyps noted. There were few small sigmoid and ascending colon diverticulosis noted. It should be noted that there was brown stool throughout the procedure. The patient tolerated the procedure well. The patient's vital signs remained stable throughout the procedure. IMPRESSION: 1. Fair to poor prep, but procedure completed. 2. Diverticulosis. 3. Internal hemorrhoids. 4. Otherwise, normal colonoscopy. RECOMMENDATIONS: 1. High-fiber diet. 2. Follow hematocrit and transfuse as needed. 3. Continue other medications. 4. If repeat H and H stable, okay to discharge from GI standpoint with followup as an outpatient. TID: [id number] RECEIPT: [id number] CAB/NIS
[2021-08-05 23:51] LABS: Hematocrit 29.3 % (35.5-45.6); Hemoglobin 9.2 gm/dl (11.8-15.2)
[2021-08-06 05:23] LABS: Hematocrit 26.6 % (35.5-45.6); Hemoglobin 8.7 gm/dl (11.8-15.2)
[2021-08-06] MEDS: PANTOPRAZOLE 40 MG INJ IV SCH ×2 (07:48→10:30)
[2021-08-06 10:29] VITALS: BP 132/78
[2021-08-06] MEDS: amLODIPine 10 MG TAB PO SCH (10:31)
[2021-08-06] MEDS: CETIRIZINE 10 MG TAB PO SCH (10:31)
[2021-08-06] MEDS: carvediloL 25 MG TAB PO SCH (10:31)
[2021-08-06] MEDS: LISINOPRIL 20 MG TAB PO SCH (10:31)
[2021-08-06] MEDS: hydroCHLOROthiazide 12.5 MG CAP PO SCH (10:31)
--- NOTE | 2021-08-06 11:44 | Discharge Summary ---
Providers - Providers Date of Admission: 08/03/21 22:56 Date of discharge: 08/06/21 Attending physician: NANCY OROURKE 08/03/21 22:56 Consult to Physician [CONS] Routine Comment: Consulting Provider: OLIVIA LIPSCOMB Physician Instructions: Reason For Exam: gib Primary care physician: JENIFFER BOOKER Hospitalization Condition: Stable Hospital course: 46-year-old male presented to ER on 08/07/21 with history of diverticulosis and lower GI bleeding presenting with complaint of GI bleed since . Patient had a large bloody bowel movement that appeared to improve on Thursday however he experienced another large bloody bowel movement accompanied by a presyncopal spell. He reports a similar incident back in 2015 for which he was admitted here and underwent upper endoscopy and biopsy. He also had a syncopal event during that time which was thought to have been vasovagal in nature. In the emergency room patient had hemoglobin is 10.2 and hematocrit 32.1. He was admitted and consulted GI for possible enoscopy. 08/05/2021; scheduled for endoscopy today N.p.o. status, monitor H&H Follow endoscopy results, follow clinically Discharge when medically stable and cleared by GI Procedure: egd/colonoscopy EGD: hiatal hernia - mild gastritis with few superficial erosions (bx's) - negative other Colon: brown stool throughout - mild diverticulosis sigmoid/ascending colon - medium internal hemorrhoids - negative other 08/06/21: s/p EGD/colonoscopy yesterday, found mild diverticulitis in the sigmoid/ascending colon. His h/h was stable. No further episodes of GI bleed. BP stable, recommended to continue fibre rich, low salt, low fat diet and discharged home in stable condition with outpt followup. Disposition: HOME / SELF CARE / HOMELESS Final Discharge Diagnosis (Prints w/discharge instructions): Hematochezia, lower GI bleed due to diverticulosis. Diverticulosis. Syncope, vasovagal. Hypertension. Morbid obesity Time spent for discharge: 34 minutes Core Measure Documentation - Palliative Care Palliative Care/ Comfort Measures: Not Applicable - Core Measures Any of the following diagnoses?: none Exam - Constitutional Vitals: Temp Pulse Resp BP Pulse Ox 98.5 F 81 16 132/78 99 08/06/21 10:05 08/06/21 10:05 08/06/21 10:05 08/06/21 10:05 08/06/21 10:05 General appearance: Present: no acute distress, obese - EENT Eyes: Present: PERRL ENT: hearing intact, clear oral mucosa - Neck Neck: Present: supple, normal ROM - Respiratory Respiratory effort: normal Respiratory: bilateral: CTA - Cardiovascular Heart Sounds: Present: S1 & S2. Absent: rub, click - Extremities Extremities: pulses symmetrical, No edema Peripheral Pulses: within normal limits - Abdominal General gastrointestinal: Present: soft, non-tender, non-distended, normal bowel sounds - Integumentary Integumentary: Present: clear, warm, dry - Musculoskeletal Musculoskeletal: gait normal, strength equal bilaterally - Psychiatric Psychiatric: appropriate mood/affect, intact judgment & insight - Neurologic Neurologic: CNII-XII intact, moves all extremities Plan Activity: advance as tolerated Weight Bearing Status: Weight Bear as Tolerated Diet: low fat, low salt, other (Consume fiber rich diet) Follow up with: JENIFFER BOOKER MD [Primary Care Provider] - 7 Days Forms: Accompanied Note
--- NOTE | 2021-08-06 12:28 | Gastroenterology Progress Note ---
Assessment and Plan 1. GI: stable overnight without signs bleeding - advance diet as tolerated - ok to dc from GI standpoint - will sign off, call if needed Subjective Date of service: 08/06/21 Interval history: - no GI complaints overnight Objective - Constitutional Vitals: Temp Pulse Resp BP Pulse Ox 98.5 F 81 16 132/78 99 08/06/21 10:05 08/06/21 10:05 08/06/21 10:05 08/06/21 10:05 08/06/21 10:05 General appearance: no acute distress - EENT Eyes: PERRL - Respiratory Respiratory: bilateral: CTA - Cardiovascular Rhythm: regular Heart Sounds: Present: S1 & S2 - Gastrointestinal General gastrointestinal: Present: soft, non-tender, non-distended - Labs CBC & Chem 7: 08/06/21 04:56 08/04/21 05:17 Labs: Laboratory Results - last 24 hr 08/05/21 08/05/21 08/06/21 11:55 23:08 04:56 Hgb 8.9 L 9.2 L 8.7 L Hct 27.8 L 29.3 L 26.6 L
[2021-08-07] MEDS ORDERED: NON-FORMULARY EACH (Sitagliptin Phos/Metformin Hcl [Janumet Xr 50-1,000 Mg] 1 EACH Tbmp.24 PO SCH (10:00)
[2021-08-07] MEDS ORDERED: FERROUS SULFATE 325 MG TAB PO SCH (10:00)
[2021-08-07] MEDS ORDERED: CHOLECALCIFEROL (VIT D3) 1000 UNIT (25 mcg) TAB PO SCH (10:00)
[2021-08-07] MEDS ORDERED: GABAPENTIN 300 MG CAP PO SCH (10:00)
== END 2021-08-06 14:57 | disposition home or self-care (01) | DRG 378 ==
LOC: ED 16:56 → 4A 22:56
PROVIDERS: ADMIT Hospitalist; ATTEND Internal Medicine
PROC: 0DJD8ZZ Inspection of Lower Intestinal Tract, Via Natural or Artificial Opening Endoscopic (ICD-10-PCS; principal; 2021-08-05)
PROC: 0DB68ZX Excision of Stomach, Via Natural or Artificial Opening Endoscopic, Diagnostic (ICD-10-PCS; 2021-08-05)
DX: K57.91 Diverticulosis of intestine, part unspecified, without perforation or abscess with bleeding (principal); E87.1 Hypo-osmolality and hyponatremia; Z68.41 Body mass index [BMI] 40.0-44.9, adult; K29.71 Gastritis, unspecified, with bleeding; K92.1 Melena; R55 Syncope and collapse; F10.10 Alcohol abuse, uncomplicated; I10 Essential (primary) hypertension; Z82.49 Family history of ischemic heart disease and other diseases of the circulatory system; K21.9 Gastro-esophageal reflux disease without esophagitis; K44.9 Diaphragmatic hernia without obstruction or gangrene; D64.9 Anemia, unspecified; K64.8 Other hemorrhoids; E66.01 Morbid (severe) obesity due to excess calories
CPT/HCPCS: 36415; 80048; 80053; 85014; 85018; 85025; 86850; 86900; 86901; 88305; 88342; 94640; 94660; G0378; J3490; C9113; J2704; J7030; J7042